=== PATIENT | male | born 1985 | race Caucasian/White ===

== ENCOUNTER 2024-06-15 19:18 | Emergency (ER) | payer BC ==
[2024-06-15 19:24] VITALS: BP 124/63; PULSE 65; RESP 18; TEMP 97.3; BMI 27.2
[2024-06-15] MEDS ORDERED: FLUORESCEIN NA 1 EA STRIP ONE (19:24)
[2024-06-15] MEDS ORDERED: TETRACAINE 0.5% OPHTH SOLN 2 ML BOTTLE ONE (19:24)
[2024-06-15] MEDS ORDERED: TOBRAMYCIN 0.3% OPHTH SOLN 5 ML BOTTLE ONE (20:27)
[2024-06-15] MEDS: TOBRAMYCIN 0.3% OPHTH SOLN 5 ML BOTTLE OD ONE (20:29)
[2024-06-15] MEDS ORDERED: NEOMYCIN/POLYMYX/HC OPHTHALMIC SUSPENSION 7.5 ML BOTTLE OD SCH (22:00)
== END 2024-06-15 20:34 | disposition home or self-care (01) ==
LOC: FER 19:18
DX: S05.01XA Injury of conjunctiva and corneal abrasion without foreign body, right eye, initial encounter (principal); W22.8XXA Striking against or struck by other objects, initial encounter; Y99.0 Civilian activity done for income or pay
CPT/HCPCS: 99283-25